=== PATIENT | female | born 1970 | race African-American/Black ===

== ENCOUNTER 2017-01-24 16:46 | Emergency (ER) | payer SELFPAY ==
[~2017-01-24] VITALS: Ht 172.7 cm; Wt 72.6 kg
[2017-01-24 17:00] VITALS: BP 106/62
[2017-01-24] MEDS ORDERED: Dexamethasone Elixir 0.25mg/2.5ml ORAL ONE (17:15)
--- NOTE | 2017-01-24 17:18 | Emergency Room Report ---
History of Present Illness General Chief Complaint: Sore Throat Source: Patient Present Illness HPI Patient is a 46-year-old female presented after having increased sore throat as was given a productive cough without any fever. The patient not been vomiting or having any other complaints. Patient stated she had some voice changes. She had recently been exposed to some pollens which she is reportedly allergic to. She reports having a lot of postnasal drip without any productive cough. She denied hemoptysis. She denied any leg pain or swelling. Allergies: Coded Allergies: GLUTEN (Verified Allergy, Unknown, 01/24/17) PEACH (Verified Allergy, Unknown, 01/24/17) SHELLFISH DERIVED (Verified Allergy, Unknown, 01/24/17) SULFA (SULFONAMIDE ANTIBIOTICS) (Verified Allergy, Unknown, 01/24/17) Patient History Past Medical History: see triage record Last Menstrual Period: 01/18/17 Now: No Reviewed Nursing Documentation: PMH: Agreed, PSxH: Agreed Nursing Documentation-PMH Past Medical History: No Stated History Review of Systems All Other Systems: negative except mentioned in HPI Physical Exam Vital Signs Date Time Temp Pulse Resp B/P Pulse Ox O2 Delivery O2 Flow Rate FiO2 01/24/17 16:53 98.8 100 16 106/62 98 Room Air General Appearance: well appearing, no apparent distress, alert, GCS 15 Head: normocephalic, atraumatic ENT: hearing grossly normal, normal pharynx, normal voice, uvula midline Neck: full range of motion, supple Respiratory: lungs clear, normal breath sounds, no respiratory distress, speaking full sentences Cardiovascular #1: normal peripheral pulses, regular rate, rhythm Musculoskeletal: normal inspection, digits/nails normal, no calf tenderness Neurologic: normal gait Psychiatric: mood/affect normal Skin: no rash Medical Decision Making Diagnostic Impression: Primary Impression: Sore throat Additional Impression: Acute viral pharyngitis ER Course Patient presented for sore throat. Differential diagnosis included but was not limited to meningitis, exudative tonsillitis, retropharyngeal abscess, epiglottitis, strep pharyngitis. The patient appears to have benign exam. She was given oral Decadron.The patient is advised to follow up with primary care doctor in 1-2 days. Patient is advised to return if any worsening condition or if any changes in status that are concerning. Last Vital Signs Date Time Temp Pulse Resp B/P Pulse Ox O2 Delivery O2 Flow Rate FiO2 01/24/17 17:00 16 106/62 98 Room Air 01/24/17 16:53 98.8 100 Status: improved Disposition: HOME, SELF-CARE Condition: Stable Scripts D-Methorphan Hb/Prometh Hcl* (PROMETHAZINE-DM SYRUP*) 118 Ml Syrup 5 ML ORAL Q4H Y for For Cough, #120 ML 0 Refills Prov: Felipe Betancur 01/24/17 Felipe Betancur Jan 24, 2017 17:18
[2017-01-24] MEDS ORDERED: CLARITIN10 M2 ORAL (17:19)
[2017-01-24] MEDS ORDERED: PROMETHAZINE-D118 ML ORAL (17:23)
[2017-01-24] MEDS ORDERED: Dexamethasone 4mg/ml vial IM ONE (17:30)
[2017-01-24 17:34] VITALS: BP 106/62
== END 2017-01-24 17:41 | disposition home or self-care (01) ==
LOC: EMR 17:16
DX: J02.9 Acute pharyngitis, unspecified (principal); Z88.2 Allergy status to sulfonamides; Z91.018 Allergy to other foods; Z91.013 Allergy to seafood
CPT/HCPCS: 96372; 99283; J1100